=== PATIENT | male | born 1945 | race American Indian/Alaskan Native ===

== ENCOUNTER 2019-07-07 18:22 | Observation (INO) | payer MEDICARE ==
--- NOTE | 2019-07-07 21:58 | Emergency Department Report ---
HPI - General Chief Complaint: Weakness Time Seen by Provider: 07/07/19 21:36 - HPI HPI: Room 8 The pt is a 73 y/o M p/w a cc of AMS. Family states tonight the pt was on the sofa and appeared "out of it." She states the pt was too weak to get off of the sofa and wasnt behaving like himself, She states the pt is usually more alert. The pt has c/o "Not feeling good" lately as he has had a cough productive of yellow sputum and c/o dizziness. Denies fever, n/v. Pt admits to rhinnorhea. Pt currently denies complaints ED Past Medical Hx - Past Medical History Hx Hypertension: Yes Hx GERD: Yes Additional medical history: HIGH CHOLESTEROL - Surgical History Additional Surgical History: prostate surgery for cancer, Tonsilectomy, - Family History Family history: no significant - Social History Smoking Status: Current Every Day Smoker (1 ppd) Substance Use Type: None (denies illicit drug use), Alcohol (rarely) - Medications Home Medications: Home Medications Medication Instructions Recorded Confirmed Last Taken Type Metoprolol Succinate 25 mg PO DAILY 01/21/15 02/03/15 01/19/15 History Zofran TAB 4 mg PO Q4H PRN 02/03/15 02/03/15 Unknown History ED Review of Systems ROS: Stated complaint: WEAKNESS Other details as noted in HPI Constitutional: malaise Eyes: denies: eye pain ENT: denies: throat pain Respiratory: cough Cardiovascular: denies: chest pain Endocrine: no symptoms reported Gastrointestinal: denies: nausea, vomiting Genitourinary: denies: dysuria Musculoskeletal: denies: back pain Neurological: denies: headache Physical Exam - Physical Exam Vital Signs: Vital Signs 07/07/19 07/07/19 20:05 20:37 Temperature 99.6 F Pulse Rate 92 H Respiratory 16 16 Rate Blood Pressure 161/92 O2 Sat by Pulse 96 Oximetry Physical Exam: GEN: WD WN Lying on stretcher in NAD HEENT: NCAT, EOMI NECK: Trachea midline, no nuchal rigidity CV: rrr no m/r/g PULM: CTA Bilat ABD: S/NT/ND +BS NEURO: answers questions slowly GCS 15 SKIN: No diaphoresis MUSC: no evidence of acute injury ED Course Vital Signs 07/07/19 07/07/19 20:05 20:37 Temperature 99.6 F Pulse Rate 92 H Respiratory 16 16 Rate Blood Pressure 161/92 O2 Sat by Pulse 96 Oximetry ED Medical Decision Making - Lab Data Result diagrams: 07/07/19 22:10 07/07/19 22:10 Laboratory Tests 07/07/19 07/07/19 07/07/19 22:10 22:10 22:10 WBC 4.2 L RBC 4.34 Hgb 12.7 Hct 37.3 MCV 86 MCH 29 MCHC 34 RDW 15.1 Plt Count 194 Lymph % (Auto) 7.4 L [place] % (Auto) 10.4 H Eos % (Auto) 0.7 Baso % (Auto) 0.4 Lymph # 0.3 L [place] # 0.4 Eos # 0.0 Baso # 0.0 Seg Neutrophils % 81.1 H Seg Neutrophils # 3.4 Sodium 136 L Potassium 4.1 Chloride 101.5 Carbon Dioxide 20 L Anion Gap 19 BUN 18 Creatinine 1.4 Estimated GFR > 60 BUN/Creatinine Ratio 13 Glucose 95 Calcium 9.5 Magnesium 2.10 Total Bilirubin 0.50 AST 20 ALT 13 Alkaline Phosphatase 68 Total Creatine Kinase 130 CK-MB (CK-2) < 1.0 CK-MB (CK-2) Rel Index 0.7 Troponin T < 0.010 Total Protein 8.4 H Albumin 4.0 Albumin/Globulin Ratio 0.9 TSH 1.220 Free T4 0.87 Plasma/Serum Alcohol Influenza A (Rapid) Influenza B (Rapid) 07/07/19 07/07/19 22:10 Unknown WBC RBC Hgb Hct MCV MCH MCHC RDW Plt Count Lymph % (Auto) [place] % (Auto) Eos % (Auto) Baso % (Auto) Lymph # [place] # Eos # Baso # Seg Neutrophils % Seg Neutrophils # Sodium Potassium Chloride Carbon Dioxide Anion Gap BUN Creatinine Estimated GFR BUN/Creatinine Ratio Glucose Calcium Magnesium Total Bilirubin AST ALT Alkaline Phosphatase Total Creatine Kinase CK-MB (CK-2) CK-MB (CK-2) Rel Index Troponin T Total Protein Albumin Albumin/Globulin Ratio TSH Free T4 Plasma/Serum Alcohol < 0.01 Influenza A (Rapid) Negative Influenza B (Rapid) Negative - EKG Data -: EKG Interpreted by Ar EKG shows normal: sinus rhythm Rate: normal - EKG Data When compared to previous EKG there are: previous EKG unavailable Interpretation: other (no ischemic changes) - Radiology Data Radiology results: report reviewed (CT Head, CXR), image reviewed (CT Head, CXR) interpreted by me: CCXR- no focal infiltrate, no ptx [address] [address] Cat Scan Report Signed Patient: JOSE OCHOA MR#: [id number] 7 : 1945 Acct:[id number] Age/Sex: 73 / M ADM Date: 07/07/19 Loc: ED Attending Dr: Ordering Physician: DAVIN RODRIGUEZ MD Date of Service: 07/07/19 Procedure(s): CT head/brain wo con Accession Number(s): [id number] cc: DAVIN RODRIGUEZ MD CT head without contrast HISTORY: AMS. TECHNIQUE: Axial imaging performed from the skull apex through the skull base without the use of contrast. All CT scans at this location are performed using CT dose reduction for ALARA by means of automated exposure control. COMPARISON: None FINDINGS: Parenchyma: No acute intracranial hemorrhage or parenchymal abnormality. Ventricles: There is mild diffuse brain atrophy with commensurate ventricular enlargement which is likely age appropriate. Soft tissues: Soft tissues including the orbits appear normal. Bones: No acute osseous abnormality. Sinuses: Sinuses and mastoid air cells are clear. IMPRESSION: No acute abnormality. Signer Name: Lopez Baxter MD Signed: 07/07/2019 10:40 PM Workstation Name: [id number] Transcribed By: JW Dictated By: Lopez Baxter MD Electronically Authenticated By: Lopez Baxter MD Signed Date/Time: 07/07/192239 DD/ 38 TD/TT: [address] [address] XRay Report Signed Patient: JOSE OCHOA MR#: [id number] 7 : 1945 Acct:[id number] Age/Sex: 73 / M ADM Date: 07/07/19 Loc: ED Attending Dr: Ordering Physician: DAVIN RODRIGUEZ MD Date of Service: 07/07/19 Procedure(s): XR chest 1V ap Accession Number(s): [id number] cc: DAVIN RODRIGUEZ MD Fluoro Time In Minutes: CHEST 1 VIEW INDICATION: cough COMPARISON: 10/23/2014 FINDINGS: Support devices: None Heart: Normal Lungs/Pleura: Inspiration on today's exam is certainly less optimal than on the previous study, but I see no convincing evidence of acute disease. IMPRESSION: 1. No acute disease. Signer Name: Adrian Holley MD Signed: 07/07/2019 10:22 PM Workstation Name: [id number] Transcribed By: TM Dictated By: Adrian Holley MD Electronically Authenticated By: Adrian Holley MD Signed Date/Time: 07/07/192221 DD/ 20 TD/TT: - Differential Diagnosis dehydration, electrolyte imbalance, uti, hypothyroid Critical care attestation.: If time is entered above; I have spent that time in minutes in the direct care of this critically ill patient, excluding procedure time. ED Disposition Clinical Impression: Altered mental status Disposition: DC-09 OP ADMIT IP TO THIS HOSP Is pt being admited?: Yes Condition: Fair Referrals: PRIMARY CAREMD [Primary Care Provider] - 3-5 Days Time of Disposition: 23:06 (Hospitalist paged (Dr Zhang))
--- NOTE | 2019-07-07 22:27 | XRay Report ---
CHEST 1 VIEW INDICATION: cough COMPARISON: 10/23/2014 FINDINGS: Support devices: None Heart: Normal Lungs/Pleura: Inspiration on today's exam is certainly less optimal than on the previous study, but I see no convincing evidence of acute disease. IMPRESSION: 1. No acute disease. Signer Name: Adrian Holley MD Signed: 07/07/2019 10:22 PM Workstation Name: [id number]
--- NOTE | 2019-07-07 22:45 | Cat Scan Report ---
CT head without contrast HISTORY: AMS. TECHNIQUE: Axial imaging performed from the skull apex through the skull base without the use of con trast. All CT scans at this location are performed using CT dose reduction for ALARA by means of aut omated exposure control. COMPARISON: None FINDINGS: Parenchyma: No acute intracranial hemorrhage or parenchymal abnormality. Ventricles: There is mild diffuse brain atrophy with commensurate ventricular enlargement which is l ikely age appropriate. Soft tissues: Soft tissues including the orbits appear normal. Bones: No acute osseous abnormality. Sinuses: Sinuses and mastoid air cells are clear. IMPRESSION: No acute abnormality. Signer Name: Lopez Baxter MD Signed: 07/07/2019 10:40 PM Workstation Name: [id number]
[2019-07-07 22:48] LABS: Basophils % (Auto) 0.4 % (0.0-1.8); Eosinophils % (Auto) 0.7 % (0.0-4.3); Hematocrit 37.3 % (35.5-45.6); Hemoglobin 12.7 gm/dl (11.8-15.2); Lymphocytes # (Auto) 0.3 K/mm3 (1.2-5.4); Lymphocytes % (Auto) 7.4 % (13.4-35.0); Mean Corpuscular HGB Conc 34 % (32-34); Mean Corpuscular Volume 86 fl (84-94); Monocytes # (Auto) 0.4 K/mm3 (0.0-0.8); Monocytes % (Auto) 10.4 % (0.0-7.3); Platelet Count 194 K/mm3 (140-440); Red Blood Count 4.34 M/mm3 (3.65-5.03); Red Cell Distribution Width 15.1 % (13.2-15.2)
[2019-07-07 22:53] LABS: Free T4 (Free Thyroxine) 0.87 ng/dL (0.76-1.46)
[2019-07-07 22:55] LABS: Creatine Kinase MB < 1.0 ng/mL (0.0-4.0)
[2019-07-07 22:56] LABS: Alanine Aminotransferase 13 units/L (7-56); BUN/Creatinine Ratio 13; Blood Urea Nitrogen 18 mg/dL (9-20); Calcium 9.5 mg/dL (8.4-10.2); Hemolysis Index 13
[2019-07-07] MEDS ORDERED: LACTULOSE 20 GM/30 ML ORAL LIQD PO ONE (23:25)
[2019-07-08] MEDS ORDERED: ACETAMINOPHEN 325 MG TAB PO PRN (00:11)
[2019-07-08] MEDS ORDERED: ONDANSETRON 4 MG/2 ML INJ IV PRN (00:11)
[2019-07-08] MEDS ORDERED: MAGNESIUM HYDROXIDE (MOM) ORAL LIQD UDC PO PRN (00:11)
--- NOTE | 2019-07-08 00:54 | History and Physical Report ---
History of Present Illness Date of examination: 07/07/19 Date of admission: 07/07/19 23:26 Chief complaint: Altered Mental status History of present illness: 73-year-old male with known history of hypertension, hyperlipidemia brought into the emergency room today for generalized weakness and altered mental status. Patient was said to be sitting down his sofa today and was not behaving his usual self. Patient was said to have been having some cough productive of some yellow sputum recently, had no fever or chills, no nausea vomiting, no chest pain. Upon arrival in the emergency room patient indicates that he just felt very weak and could not get up from the chair. He denies any other complaints. Past History Past Medical History: hypertension, hyperlipidemia, other (Prostate cancer) Past Surgical History: Other (Prostate surgery) Social history: smoking (1 pack per day of cigarette), alcohol abuse (Drinks alcohol occasionally) Family history: no significant family history Medications and Allergies Allergies Allergy/AdvReac Type Severity Reaction Status Date / Time No Known Allergies Allergy Verified 10/23/14 11:02 Home Medications Medication Instructions Recorded Confirmed Last Taken Type Metoprolol Succinate 25 mg PO DAILY 01/21/15 07/08/19 01/19/15 History AtorvaSTATin 40 mg PO HS 07/08/19 07/08/19 Unknown History Active Meds: Active Medications Acetaminophen (Tylenol) 650 mg PO Q4H PRN PRN Reason: Pain MILD(1-3)/Fever >100.5/LUA Sodium Chloride (Nacl 0.9% 1000 Ml) 1,000 mls @ 75 mls/hr IV DIRECT ALYSSA Magnesium Hydroxide (Milk Of Magnesia) 30 ml PO Q4H PRN PRN Reason: Constipation Ondansetron HCl (Zofran) 4 mg IV Q8H PRN PRN Reason: Nausea And Vomiting Sodium Chloride (Sodium Chloride Flush Syringe 10 Ml) 10 ml IV BID ALYSSA Sodium Chloride (Sodium Chloride Flush Syringe 10 Ml) 10 ml IV PRN PRN PRN Reason: LINE FLUSH Review of Systems Constitutional: no weight loss, no fever, no chills Cardiovascular: no chest pain, no palpitations Respiratory: cough, no shortness of breath, no congestion Gastrointestinal: no nausea, no vomiting, no diarrhea Genitourinary Male: no dysuria, no hematuria Musculoskeletal: no neck pain, no low back pain Integumentary: no rash, no pruritis Neurological: weakness, no syncope, no headaches Exam - Constitutional Vitals: Temp Pulse Resp BP Pulse Ox 99.6 F 92 H 16 161/92 96 07/07/19 20:05 07/07/19 20:05 07/07/19 20:37 07/07/19 20:05 07/07/19 20:05 General appearance: Present: no acute distress, well-nourished - EENT Eyes: Present: PERRL, EOM intact ENT: hearing intact, clear oral mucosa, dentition normal - Neck Neck: Present: supple, normal ROM - Respiratory Respiratory effort: normal Respiratory: bilateral: CTA - Cardiovascular Rhythm: regular Heart Sounds: Present: S1 & S2 - Extremities Extremities: no ischemia, pulses intact, No edema, Full ROM Peripheral Pulses: within normal limits - Abdominal General gastrointestinal: Present: soft, non-tender, non-distended - Integumentary Integumentary: Present: clear, warm, dry - Musculoskeletal Musculoskeletal: strength equal bilaterally - Psychiatric Psychiatric: appropriate mood/affect, intact judgment & insight, cooperative - Neurologic Neurologic: CNII-XII intact, moves all extremities Results - Labs CBC & Chem 7: 07/07/19 22:10 07/07/19 22:10 Labs: Abnormal lab results 07/07/19 07/07/19 07/07/19 Range/Units 22:10 22:10 22:10 WBC 4.2 L (4.5-11.0) K/mm3 Lymph % (Auto) 7.4 L (13.4-35.0) % [place] % (Auto) 10.4 H (0.0-7.3) % Lymph # 0.3 L (1.2-5.4) K/mm3 Seg Neutrophils % 81.1 H (40.0-70.0) % Sodium 136 L (137-145) mmol/L Carbon Dioxide 20 L (22-30) mmol/L Ammonia 69.0 H (25-60) umol/L Total Protein 8.4 H (6.3-8.2) g/dL Assessment and Plan - Patient Problems (1) Altered mental status Current Visit: Yes Status: Acute Plan to address problem: Etiology is unclear. Patient admitted and will monitor mental status. This may be related to his elevated ammonia levels. (2) Hyperammonemia Current Visit: Yes Status: Acute Plan to address problem: Etiology is unclear. Patient has slightly elevated liver enzyme. We will give lactulose and monitor mental status. We will also monitor ammonia levels. We will place a consult to gastroenterology for further evaluation and recommendation. (3) DVT prophylaxis Current Visit: Yes Status: Acute Plan to address problem: Patient placed on subcutaneous heparin. (4) Full code status Current Visit: Yes Status: Acute
[2019-07-08] MEDS ORDERED: LACTULOSE 20 GM/30 ML ORAL LIQD ONE (00:57)
[2019-07-08 01:21] LABS: Bacteria,Urine 1+ /HPF (Negative); Bilirubin,Urine NEG (Negative); Blood,Urine MOD (Negative); Color,Urine Yellow (Yellow); Mucus,Urine FEW /HPF; Urobilinogen,Urine < 2.0 mg/dL (<2.0)
[2019-07-08] MEDS: SODIUM CHLORIDE 0.9% 1000 ML 1,000 ML IV SCH ×2 (06:15→21:13)
[2019-07-08] MEDS: LACTULOSE 20 GM/30 ML ORAL LIQD PO SCH ×3 (06:15→19:20)
[2019-07-08] MEDS: HEPARIN 5,000 UNIT/1 ML VIAL SUB-Q SCH ×4 (06:21→21:12)
[2019-07-08] MEDS: METOPROLOL SUCCINATE XL 25 MG TAB PO SCH (09:26)
--- NOTE | 2019-07-08 11:55 | Progress Note ---
Assessment and Plan Assessment and plan: Patient reports he had an episode of weakness. His family were concerned that he was less responsive. Altered mental status Patient denies altered mental status, stroke work-up in progress Pseudo-hyperammonemia It was likely a lab error, question if the sample was put on ice. Repeat ammonia is normal. Liver function tests are normal. Low-grade fever; flu negative, UA and chest x-ray negative. History Interval history: Review of systems Constitutional: No fevers, no malaise, no joint pains CVS: No chest pain, no orthopnea, no pedal edema GI: No abdominal pain, no diarrhea, no vomiting, no constipation Respiratory: , no wheezing, no coughing Hospitalist Physical - Physical exam Narrative exam: General.: Appears well, no distress, nontoxic HEENT: Moist mucous membranes, extraocular muscles intact, no lymphadenopathy Neck: supple Cardiac: S1-S2 heard Lungs: clear to auscultation bilaterally Abdomen: soft , nontender, nondistended, bowel sounds positive Extremities: no edema clubbing or cyanosis Skin: no rash or lesions Neurologic: no gross focal deficits Psych: calm, and cooperative - Constitutional Vitals: Temp Pulse Resp BP Pulse Ox 100.7 F H 78 18 128/68 95 07/08/19 08:05 07/08/19 09:26 07/08/19 08:05 07/08/19 09:26 07/08/19 08:05 General appearance: Present: no acute distress, well-nourished Results - Labs CBC & Chem 7: 07/09/19 04:53 07/09/19 04:53 Labs: Laboratory Last Values WBC 4.2 K/mm3 (4.5-11.0) L 07/07/19 22:10 RBC 4.34 M/mm3 (3.65-5.03) 07/07/19 22:10 Hgb 12.7 gm/dl (11.8-15.2) 07/07/19 22:10 Hct 37.3 % (35.5-45.6) 07/07/19 22:10 MCV 86 fl (84-94) 07/07/19 22:10 MCH 29 pg (28-32) 07/07/19 22:10 MCHC 34 % (32-34) 07/07/19 22:10 RDW 15.1 % (13.2-15.2) 07/07/19 22:10 Plt Count 194 K/mm3 (140-440) 07/07/19 22:10 Lymph % (Auto) 7.4 % (13.4-35.0) L 07/07/19 22:10 [place] % (Auto) 10.4 % (0.0-7.3) H 07/07/19 22:10 Eos % (Auto) 0.7 % (0.0-4.3) 07/07/19 22:10 Baso % (Auto) 0.4 % (0.0-1.8) 07/07/19 22:10 Lymph # 0.3 K/mm3 (1.2-5.4) L 07/07/19 22:10 [place] # 0.4 K/mm3 (0.0-0.8) 07/07/19 22:10 Eos # 0.0 K/mm3 (0.0-0.4) 07/07/19 22:10 Baso # 0.0 K/mm3 (0.0-0.1) 07/07/19 22:10 Seg Neutrophils % 81.1 % (40.0-70.0) H 07/07/19 22:10 Seg Neutrophils # 3.4 K/mm3 (1.8-7.7) 07/07/19 22:10 Sodium 136 mmol/L (137-145) L 07/07/19 22:10 Potassium 4.1 mmol/L (3.6-5.0) 07/07/19 22:10 Chloride 101.5 mmol/L (98-107) 07/07/19 22:10 Carbon Dioxide 20 mmol/L (22-30) L 07/07/19 22:10 Anion Gap 19 mmol/L 07/07/19 22:10 BUN 18 mg/dL (9-20) 07/07/19 22:10 Creatinine 1.4 mg/dL (0.8-1.5) 07/07/19 22:10 Estimated GFR > 60 ml/min 07/07/19 22:10 BUN/Creatinine Ratio 13 % 07/07/19 22:10 Glucose 95 mg/dL (75-100) 07/07/19 22:10 Calcium 9.5 mg/dL (8.4-10.2) 07/07/19 22:10 Magnesium 2.10 mg/dL (1.7-2.3) 07/07/19 22:10 Total Bilirubin 0.50 mg/dL (0.1-1.2) 07/07/19 22:10 AST 20 units/L (5-40) 07/07/19 22:10 ALT 13 units/L (7-56) 07/07/19 22:10 Alkaline Phosphatase 68 units/L (35-129) 07/07/19 22:10 Ammonia 54.0 umol/L (25-60) 07/08/19 06:10 Total Creatine Kinase 130 units/L (55-170) 07/07/19 22:10 CK-MB (CK-2) < 1.0 ng/mL (0.0-4.0) 07/07/19 22:10 CK-MB (CK-2) Rel Index 0.7 (0-4) 07/07/19 22:10 Troponin T < 0.010 ng/mL (0.00-0.029) 07/07/19 22:10 Total Protein 8.4 g/dL (6.3-8.2) H 07/07/19 22:10 Albumin 4.0 g/dL (3.9-5) 07/07/19 22:10 Albumin/Globulin Ratio 0.9 % 07/07/19 22:10 TSH 1.220 mlU/mL (0.270-4.200) 07/07/19 22:10 Free T4 0.87 ng/dL (0.76-1.46) 07/07/19 22:10 Urine Color Yellow (Yellow) 07/08/19 00:20 Urine Turbidity Cloudy (Clear) 07/08/19 00:20 Urine pH 5.0 (5.0-7.0) 07/08/19 00:20 Ur Specific [place] 1.019 (1.003-1.030) 07/08/19 00:20 Urine Protein 30 mg/dl mg/dL (Negative) 07/08/19 00:20 Urine Glucose (UA) Neg mg/dL (Negative) 07/08/19 00:20 Urine Ketones Neg mg/dL (Negative) 07/08/19 00:20 Urine Blood Mod (Negative) 07/08/19 00:20 Urine Nitrite Neg (Negative) 07/08/19 00:20 Urine Bilirubin Neg (Negative) 07/08/19 00:20 Urine Urobilinogen < 2.0 mg/dL (<2.0) 07/08/19 00:20 Ur Leukocyte Esterase Neg (Negative) 07/08/19 00:20 Urine WBC (Auto) 2.0 /HPF (0.0-6.0) 07/08/19 00:20 Urine RBC (Auto) 2.0 /HPF (0.0-6.0) 07/08/19 00:20 U Epithel Cells (Auto) < 1.0 /HPF (0-13.0) 07/08/19 00:20 Urine Bacteria (Auto) 1+ /HPF (Negative) 07/08/19 00:20 Uric Acid Crystals 1+ 07/08/19 00:20 Urine Mucus Few /HPF 07/08/19 00:20 Plasma/Serum Alcohol < 0.01 % (0-0.07) 07/07/19 22:10 Influenza A (Rapid) Negative (Negative) 07/07/19 Unknown Influenza B (Rapid) Negative (Negative) 07/07/19 Unknown Active Medications - Current Medications Current Medications: Generic Name Dose Route Start Last Admin Trade Name Freq PRN Reason Stop Dose Admin Acetaminophen 650 mg 07/08/19 00:11 Tylenol PO Q4H PRN Pain MILD(1-3)/Fever >100.5/LUA Atorvastatin Calcium 40 mg 07/08/19 22:00 Lipitor PO QHS ALYSSA Heparin Sodium (Porcine) 5,000 unit 07/08/19 06:00 07/08/19 06:21 Heparin SUB-Q 5,000 unit Q8HR ALYSSA Administration Sodium Chloride 1,000 mls @ 75 mls/hr 07/08/19 00:15 07/08/19 06:15 Nacl 0.9% 1000 Ml IV 75 mls/hr DIRECT ALYSSA Administration Lactulose 20 gm 07/08/19 06:00 07/08/19 11:23 Cephulac PO 20 gm Q6HR ALYSSA Administration Magnesium Hydroxide 30 ml 07/08/19 00:11 Milk Of Magnesia PO Q4H PRN Constipation Metoprolol Succinate 25 mg 07/08/19 10:00 07/08/19 09:26 Metoprolol Xl PO 25 mg DAILY ALYSSA Administration Ondansetron HCl 4 mg 07/08/19 00:11 Zofran IV Q8H PRN Nausea And Vomiting Sodium Chloride 10 ml 07/08/19 10:00 07/08/19 09:26 Sodium Chloride Flush Syringe 10 Ml IV 10 ml BID ALYSSA Administration Sodium Chloride 10 ml 07/08/19 00:11 Sodium Chloride Flush Syringe 10 Ml IV PRN PRN LINE FLUSH
--- NOTE | 2019-07-08 13:42 | Gastroenterology Consultation ---
History of Present Illness - Reason for Consult Consult date: 07/08/19 hyperammonemia Requesting physician: LADY MORTENSEN - History of Present Illness Patient is a 73 y/o male with PMH of HTN, HLD, and prostate CA who was bought to ED for evaluation of generalized weakness and AMS. Upon admission, ammonia level was found to be elevated at 69 to which GI has been consulted. Head CT w/o acute process. This morning patient was sitting up in bed with family at bedside. Noted to alert and oriented. Currently w/o GI complaints such as abd pain, N/V, jaundice, wt loss, signs of bleeding, or LGI symptoms. Admits to heavy alcohol use on the weekends but has no hx or Fhx of liver disease. No new medications. Tolerating diet. Past History Past Medical History: hypertension, hyperlipidemia, other (Prostate cancer) Past Surgical History: Other (Prostate surgery) Social history: smoking (1 pack per day of cigarette), alcohol abuse (Drinks alcohol occasionally) Family history: no significant family history Medications and Allergies Allergies Allergy/AdvReac Type Severity Reaction Status Date / Time No Known Allergies Allergy Verified 10/23/14 11:02 Home Medications Medication Instructions Recorded Confirmed Last Taken Type Metoprolol Succinate 25 mg PO DAILY 01/21/15 07/08/19 01/19/15 History AtorvaSTATin 40 mg PO HS 07/08/19 07/08/19 Unknown History Active Meds: Active Medications Acetaminophen (Tylenol) 650 mg PO Q4H PRN PRN Reason: Pain MILD(1-3)/Fever >100.5/LUA Last Admin: 07/08/19 10:00 Dose: 650 mg Documented by: Atorvastatin Calcium (Lipitor) 40 mg PO QHS ALYSSA Heparin Sodium (Porcine) (Heparin) 5,000 unit SUB-Q Q8HR ALYSSA Last Admin: 07/08/19 13:38 Dose: 5,000 unit Documented by: Sodium Chloride (Nacl 0.9% 1000 Ml) 1,000 mls @ 75 mls/hr IV DIRECT ALYSSA Last Admin: 07/08/19 06:15 Dose: 75 mls/hr Documented by: Lactulose (Cephulac) 20 gm PO Q6HR ALYSSA Last Admin: 07/08/19 11:23 Dose: 20 gm Documented by: Magnesium Hydroxide (Milk Of Magnesia) 30 ml PO Q4H PRN PRN Reason: Constipation Metoprolol Succinate (Metoprolol Xl) 25 mg PO DAILY [facility] Last Admin: 07/08/19 09:26 Dose: 25 mg Documented by: Ondansetron HCl (Zofran) 4 mg IV Q8H PRN PRN Reason: Nausea And Vomiting Sodium Chloride (Sodium Chloride Flush Syringe 10 Ml) 10 ml IV BID [facility] Last Admin: 07/08/19 09:26 Dose: 10 ml Documented by: Sodium Chloride (Sodium Chloride Flush Syringe 10 Ml) 10 ml IV PRN PRN PRN Reason: LINE FLUSH medications reviewed/updated as required Review of Systems - Review of Systems All systems: negative Constitutional: weakness Gastrointestinal: no abdominal pain, no nausea, no vomiting Neurological: other (confusion) Exam - Constitutional Vital Signs: Temp Pulse Resp BP Pulse Ox 100.7 F H 78 18 128/68 95 07/08/19 08:05 07/08/19 09:26 07/08/19 08:05 07/08/19 09:26 07/08/19 08:05 General appearance: no acute distress - EENT Eyes: PERRL, EOM intact ENT: hearing intact - Respiratory Respiratory effort: normal - Cardiovascular Rhythm: regular - Gastrointestinal General gastrointestinal: Present: soft, non-tender, non-distended, normal bowel sounds - Integumentary Integumentary: Present: warm, dry - Neurologic Neurological: alert and oriented x3 - Labs CBC & Chem 7: 07/07/19 22:10 07/07/19 22:10 Lab Results: Laboratory Results - last 24 hr 07/07/19 07/07/19 07/07/19 22:10 22:10 22:10 WBC 4.2 L RBC 4.34 Hgb 12.7 Hct 37.3 MCV 86 MCH 29 MCHC 34 RDW 15.1 Plt Count 194 Lymph % (Auto) 7.4 L [place] % (Auto) 10.4 H Eos % (Auto) 0.7 Baso % (Auto) 0.4 Lymph # 0.3 L [place] # 0.4 Eos # 0.0 Baso # 0.0 Seg Neutrophils % 81.1 H Seg Neutrophils # 3.4 Sodium 136 L Potassium 4.1 Chloride 101.5 Carbon Dioxide 20 L Anion Gap 19 BUN 18 Creatinine 1.4 Estimated GFR > 60 BUN/Creatinine Ratio 13 Glucose 95 Calcium 9.5 Magnesium 2.10 Total Bilirubin 0.50 AST 20 ALT 13 Alkaline Phosphatase 68 Ammonia Total Creatine Kinase 130 CK-MB (CK-2) < 1.0 CK-MB (CK-2) Rel Index 0.7 Troponin T < 0.010 Total Protein 8.4 H Albumin 4.0 Albumin/Globulin Ratio 0.9 TSH 1.220 Free T4 0.87 Urine Color Urine Turbidity Urine pH Ur Specific [place] Urine Protein Urine Glucose (UA) Urine Ketones Urine Blood Urine Nitrite Urine Bilirubin Urine Urobilinogen Ur Leukocyte Esterase Urine WBC (Auto) Urine RBC (Auto) U Epithel Cells (Auto) Urine Bacteria (Auto) Uric Acid Crystals Urine Mucus Plasma/Serum Alcohol Influenza A (Rapid) Influenza B (Rapid) 07/07/19 07/07/19 07/07/19 22:10 22:10 Unknown WBC RBC Hgb Hct MCV MCH MCHC RDW Plt Count Lymph % (Auto) [place] % (Auto) Eos % (Auto) Baso % (Auto) Lymph # [place] # Eos # Baso # Seg Neutrophils % Seg Neutrophils # Sodium Potassium Chloride Carbon Dioxide Anion Gap BUN Creatinine Estimated GFR BUN/Creatinine Ratio Glucose Calcium Magnesium Total Bilirubin AST ALT Alkaline Phosphatase Ammonia 69.0 H Total Creatine Kinase CK-MB (CK-2) CK-MB (CK-2) Rel Index Troponin T Total Protein Albumin Albumin/Globulin Ratio TSH Free T4 Urine Color Urine Turbidity Urine pH Ur Specific [place] Urine Protein Urine Glucose (UA) Urine Ketones Urine Blood Urine Nitrite Urine Bilirubin Urine Urobilinogen Ur Leukocyte Esterase Urine WBC (Auto) Urine RBC (Auto) U Epithel Cells (Auto) Urine Bacteria (Auto) Uric Acid Crystals Urine Mucus Plasma/Serum Alcohol < 0.01 Influenza A (Rapid) Negative Influenza B (Rapid) Negative 07/08/19 07/08/19 00:20 06:10 WBC RBC Hgb Hct MCV MCH MCHC RDW Plt Count Lymph % (Auto) [place] % (Auto) Eos % (Auto) Baso % (Auto) Lymph # [place] # Eos # Baso # Seg Neutrophils % Seg Neutrophils # Sodium Potassium Chloride Carbon Dioxide Anion Gap BUN Creatinine Estimated GFR BUN/Creatinine Ratio Glucose Calcium Magnesium Total Bilirubin AST ALT Alkaline Phosphatase Ammonia 54.0 Total Creatine Kinase CK-MB (CK-2) CK-MB (CK-2) Rel Index Troponin T Total Protein Albumin Albumin/Globulin Ratio TSH Free T4 Urine Color Yellow Urine Turbidity Cloudy Urine pH 5.0 Ur Specific [place] 1.019 Urine Protein 30 mg/dl Urine Glucose (UA) Neg Urine Ketones Neg Urine Blood Mod Urine Nitrite Neg Urine Bilirubin Neg Urine Urobilinogen < 2.0 Ur Leukocyte Esterase Neg Urine WBC (Auto) 2.0 Urine RBC (Auto) 2.0 U Epithel Cells (Auto) < 1.0 Urine Bacteria (Auto) 1+ Uric Acid Crystals 1+ Urine Mucus Few Plasma/Serum Alcohol Influenza A (Rapid) Influenza B (Rapid) Assessment and Plan 1.hyperammonemia -ammonia 69 on admission, now WNL (54) -H/H, plt, and LFTs WNL -etiology unclear- no evidence of liver disease per labs -clinically, patient's mental status has improved (further workup of AMS per primary team). Denies abd pain, N/V, jaundice, or signs of bleeding. Tolerating diet. -recommend abd U/S for further evaluation of liver -continue lactulose -continue to trend labs and supportive care -alcohol cessation -further recommendations to follow
[2019-07-08 14:24] LABS: INR 1.09 (0.87-1.13)
--- NOTE | 2019-07-08 18:34 | Cat Scan Report ---
CT ABDOMEN AND PELVIS WITH CONTRAST INDICATION: elevated NH3. TECHNIQUE: Axial CT images were obtained through the abdomen and pelvis after 100 cc Omnipaque [address] scans at this location are performed using CT dose reduction for ALARA by means of automated exposure control. COMPARISON: None available. FINDINGS: Exam is moderately limited by story motion artifact LOWER CHEST: Airspace consolidation both lower lobes characteristic for bronchopneumonia LIVER: No significant abnormality. GALLBLADDER: No significant abnormality. BILE DUCTS: No significant abnormality. PANCREAS: No significant abnormality. SPLEEN: No significant abnormality. ADRENALS: No significant abnormality. RIGHT KIDNEY and URETER: No significant abnormality. LEFT KIDNEY and URETER: No significant abnormality. STOMACH and SMALL BOWEL: No significant abnormality. COLON: No significant abnormality. APPENDIX: No significant abnormality. PERITONEUM: No free fluid. No free air. No fluid collection. LYMPH NODES: No significant adenopathy. AORTA and ARTERIES: No significant abnormality. IVC and VEINS: No significant abnormality. URINARY BLADDER: No significant abnormality. REPRODUCTIVE ORGANS: Prostate surgically absent. ADDITIONAL FINDINGS: None. 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 Bilateral lower lobe bronchopneumonia. 2. Prostatectomy without CT evidence for intra-abdominal, pelvic or skeletal metastases Signer Name: Jose Pérez MD Signed: 07/08/2019 6:29 PM Workstation Name: [id number]
[2019-07-08 19:43] LABS: Hepatitis B Surface Antigen Non-Reactive (Negative); Hepatitis C Virus Antibody Non-Reactive (NonReactive)
--- NOTE | 2019-07-08 21:30 | Magnetic Resonance Report ---
MRI BRAIN WITHOUT CONTRAST INDICATION / CLINICAL INFORMATION: MAIN: stroke, weakness. TECHNIQUE: Multiplanar, multisequence MR images of the brain were obtained. COMPARISON: Head CT dated July 07, 2019 FINDINGS: BRAIN / INTRACRANIAL CONTENTS: Age-related parenchymal volume loss is demonstrated. Dilatation of the cortical sulci and ventricular system is noted in keeping with the patient's stated age of 73. Incid ental note is made of persistence of the cavum septum pellucidum and cavum therapy. Periventricular a nd deep white matter hyperintensities noted consistent with age-related microvascular ischemic change s. There is no mass effect. No evidence of intracranial hemorrhage or extra-axial fluid collection is seen. There is no indication of remote cortical infarction. Diffusion weighted scans are negative. T here is no indication of acute ischemic injury. The brainstem and cerebellum have an unremarkable appearance. CRANIOCERVICAL JUNCTION: No abnormalities are identified at the craniocervical junction. VASCULAR FLOW-VOIDS: Normal flow-voids are present within the major intracranial vessels. ORBITS: The orbits have an unremarkable appearance. SINUSES / MASTOIDS: There is no indication of inflammatory disease in the paranasal sinuses or mastoi d air cells. ADDITIONAL FINDINGS: None. IMPRESSION: 1. Age-appropriate involutional changes of parenchymal volume loss and microvascular ischemia. 2. No acute intracranial abnormality. MRA HEAD WITHOUT CONTRAST HISTORY: Cerebrovascular accident. COMPARISON: none TECHNIQUE: Routine MRA of the head performed. 3-D/MIP reformats postprocessed. CONTRAST: none FINDINGS: MRA HEAD: OVERVIEW: There is no evidence of intracranial stenosis or large vessel occlusion. There is no eviden ce of aneurysm or other vascular malformation. Intracranial vertebral arteries: Left vertebral artery is dominant. Both vertebral arteries contribut e to the basilar artery origin.. Basilar artery: Basilar artery has an unremarkable appearance. Posterior cerebral arteries: Artifacts on 3-D reconstructions limited evaluation of the posterior cer ebral arteries. Evaluation of source images reveals symmetrical visualization of unremarkable appeari ng posterior cerebral arteries bilaterally. Intracranial internal carotid arteries: No abnormalities are seen along the course of the internal ca rotid arteries. Anterior cerebral arteries: Asymmetry of the A1 segments of the anterior cerebral arteries is noted r ight larger than left. A 2 segments of the anterior cerebral arteries have an unremarkable appearance . Middle cerebral arteries: Bilaterally symmetrical M1 segments of the middle cerebral arteries is obse rved. Insular and opercular branches have a normal and symmetrical appearance bilaterally. Additional findings: None. IMPRESSION: 1. No indication of large vessel occlusion or intracranial stenosis. Signer Name: Lam Red MD Signed: 07/08/2019 9:25 PM Workstation Name: [id number]
[2019-07-08] MEDS ORDERED: NON-FORMULARY EACH (Atorvastatin 40 MG) PO SCH (22:00)
[2019-07-09] MEDS: LACTULOSE 20 GM/30 ML ORAL LIQD PO SCH ×2 (00:40→05:54)
[2019-07-09] MEDS: HEPARIN 5,000 UNIT/1 ML VIAL SUB-Q SCH (05:56)
[2019-07-09 06:29] LABS: Basophils % (Auto) 0.6 % (0.0-1.8); Eosinophils # (Auto) 0.1 K/mm3 (0.0-0.4); Eosinophils % (Auto) 2.5 % (0.0-4.3); Hematocrit 35.1 % (35.5-45.6); Hemoglobin 11.5 gm/dl (11.8-15.2); Lymphocytes # (Auto) 0.5 K/mm3 (1.2-5.4); Lymphocytes % (Auto) 12.1 % (13.4-35.0); Mean Corpuscular HGB Conc 33 % (32-34); Mean Corpuscular Volume 85 fl (84-94); Monocytes # (Auto) 0.4 K/mm3 (0.0-0.8); Monocytes % (Auto) 9.7 % (0.0-7.3); Platelet Count 197 K/mm3 (140-440); Red Blood Count 4.12 M/mm3 (3.65-5.03); Red Cell Distribution Width 15.3 % (13.2-15.2)
[2019-07-09 06:32] LABS: INR 1.07 (0.87-1.13)
[2019-07-09 06:52] LABS: BUN/Creatinine Ratio 17; Blood Urea Nitrogen 20 mg/dL (9-20); Calcium 8.6 mg/dL (8.4-10.2); Chol/HDL Ratio 3.37 %; HDL Cholesterol 40 mg/dL (40-59); Hemolysis Index 14; LDL Cholesterol,Direct 84 mg/dL (50-130)
--- NOTE | 2019-07-09 09:46 | Ultrasound Report ---
.ULTRASOUND ABDOMEN, COMPLETE INDICATION: hyperammonemia. COMPARISON: CT abdomen pelvis with contrast dated 07/08/2019. FINDINGS: Pancreas: No significant abnormality. Abdominal Aorta: No significant abnormality. IVC: No significant abnormality. Liver: The liver measures 15.3 cm in length. No significant abnormality. Normal hepatopedal blood fl ow in the main portal vein. Gallbladder: No significant abnormality. Bile ducts: No significant abnormality. The common bile duct was not clearly visualized in the lou hepatis but does not appear to be dilated. Kidneys: Right: 8.5 cm in length. Slightly atrophic. No focal lesion. Left: 7.8 cm in length. Sli ghtly atrophic. No focal lesion. Spleen: No significant abnormality. Free fluid: None. Additional Findings: None. IMPRESSION: Unremarkable sonographic appearance of the liver and biliary system. Please note the common bile farrah t was not clearly demonstrated. Mild bilateral renal atrophy. Signer Name: Wagner Mcclellan Jr, MD Signed: 07/09/2019 9:42 AM Workstation Name: [id number]
--- NOTE | 2019-07-09 10:04 | Progress Note ---
Hospitalist Physical - Constitutional Vitals: Temp Pulse Resp BP Pulse Ox 99.1 F 59 L 18 126/63 94 07/09/19 04:16 07/09/19 04:16 07/09/19 04:16 07/09/19 04:16 07/09/19 04:16 General appearance: Present: no acute distress, well-nourished Results - Labs CBC & Chem 7: 07/09/19 04:53 07/09/19 04:53 Labs: Laboratory Last Values WBC 4.3 K/mm3 (4.5-11.0) L 07/09/19 04:53 RBC 4.12 M/mm3 (3.65-5.03) 07/09/19 04:53 Hgb 11.5 gm/dl (11.8-15.2) L 07/09/19 04:53 Hct 35.1 % (35.5-45.6) L 07/09/19 04:53 MCV 85 fl (84-94) 07/09/19 04:53 MCH 28 pg (28-32) 07/09/19 04:53 MCHC 33 % (32-34) 07/09/19 04:53 RDW 15.3 % (13.2-15.2) H 07/09/19 04:53 Plt Count 197 K/mm3 (140-440) 07/09/19 04:53 Lymph % (Auto) 12.1 % (13.4-35.0) L 07/09/19 04:53 [place] % (Auto) 9.7 % (0.0-7.3) H 07/09/19 04:53 Eos % (Auto) 2.5 % (0.0-4.3) 07/09/19 04:53 Baso % (Auto) 0.6 % (0.0-1.8) 07/09/19 04:53 Lymph # 0.5 K/mm3 (1.2-5.4) L 07/09/19 04:53 [place] # 0.4 K/mm3 (0.0-0.8) 07/09/19 04:53 Eos # 0.1 K/mm3 (0.0-0.4) 07/09/19 04:53 Baso # 0.0 K/mm3 (0.0-0.1) 07/09/19 04:53 Seg Neutrophils % 75.1 % (40.0-70.0) H 07/09/19 04:53 Seg Neutrophils # 3.3 K/mm3 (1.8-7.7) 07/09/19 04:53 PT 14.0 Sec. (12.2-14.9) 07/09/19 04:53 INR 1.07 (0.87-1.13) 07/09/19 04:53 APTT 34.0 Sec. (24.2-36.6) 07/09/19 04:53 Sodium 141 mmol/L (137-145) 07/09/19 04:53 Potassium 3.7 mmol/L (3.6-5.0) 07/09/19 04:53 Chloride 107.8 mmol/L (98-107) H 07/09/19 04:53 Carbon Dioxide 18 mmol/L (22-30) L 07/09/19 04:53 Anion Gap 19 mmol/L 07/09/19 04:53 BUN 20 mg/dL (9-20) 07/09/19 04:53 Creatinine 1.2 mg/dL (0.8-1.5) 07/09/19 04:53 Estimated GFR > 60 ml/min 07/09/19 04:53 BUN/Creatinine Ratio 17 % 07/09/19 04:53 Glucose 96 mg/dL (75-100) 07/09/19 04:53 Hemoglobin A1c 5.6 % (4-6) 07/09/19 04:53 Calcium 8.6 mg/dL (8.4-10.2) 07/09/19 04:53 Magnesium 2.10 mg/dL (1.7-2.3) 07/07/19 22:10 Total Bilirubin 0.50 mg/dL (0.1-1.2) 07/07/19 22:10 AST 20 units/L (5-40) 07/07/19 22:10 ALT 13 units/L (7-56) 07/07/19 22:10 Alkaline Phosphatase 68 units/L (35-129) 07/07/19 22:10 Ammonia 54.0 umol/L (25-60) 07/08/19 06:10 Total Creatine Kinase 130 units/L (55-170) 07/07/19 22:10 CK-MB (CK-2) < 1.0 ng/mL (0.0-4.0) 07/07/19 22:10 CK-MB (CK-2) Rel Index 0.7 (0-4) 07/07/19 22:10 Troponin T < 0.010 ng/mL (0.00-0.029) 07/07/19 22:10 Total Protein 8.4 g/dL (6.3-8.2) H 07/07/19 22:10 Albumin 4.0 g/dL (3.9-5) 07/07/19 22:10 Albumin/Globulin Ratio 0.9 % 07/07/19 22:10 Triglycerides 76 mg/dL (2-149) 07/09/19 04:53 Cholesterol 135 mg/dL (50-199) 07/09/19 04:53 LDL Cholesterol Direct 84 mg/dL (50-130) 07/09/19 04:53 HDL Cholesterol 40 mg/dL (40-59) 07/09/19 04:53 Cholesterol/HDL Ratio 3.37 % 07/09/19 04:53 TSH 1.220 mlU/mL (0.270-4.200) 07/07/19 22:10 Free T4 0.87 ng/dL (0.76-1.46) 07/07/19 22:10 Urine Color Yellow (Yellow) 07/08/19 00:20 Urine Turbidity Cloudy (Clear) 07/08/19 00:20 Urine pH 5.0 (5.0-7.0) 07/08/19 00:20 Ur Specific [place] 1.019 (1.003-1.030) 07/08/19 00:20 Urine Protein 30 mg/dl mg/dL (Negative) 07/08/19 00:20 Urine Glucose (UA) Neg mg/dL (Negative) 07/08/19 00:20 Urine Ketones Neg mg/dL (Negative) 07/08/19 00:20 Urine Blood Mod (Negative) 07/08/19 00:20 Urine Nitrite Neg (Negative) 07/08/19 00:20 Urine Bilirubin Neg (Negative) 07/08/19 00:20 Urine Urobilinogen < 2.0 mg/dL (<2.0) 07/08/19 00:20 Ur Leukocyte Esterase Neg (Negative) 07/08/19 00:20 Urine WBC (Auto) 2.0 /HPF (0.0-6.0) 07/08/19 00:20 Urine RBC (Auto) 2.0 /HPF (0.0-6.0) 07/08/19 00:20 U Epithel Cells (Auto) < 1.0 /HPF (0-13.0) 07/08/19 00:20 Urine Bacteria (Auto) 1+ /HPF (Negative) 07/08/19 00:20 Uric Acid Crystals 1+ 07/08/19 00:20 Urine Mucus Few /HPF 07/08/19 00:20 Plasma/Serum Alcohol < 0.01 % (0-0.07) 07/07/19 22:10 Hepatitis A IgM Ab Non-reactive (NonReactive) 07/08/19 13:49 Hep Bs Antigen Non-reactive (Negative) 07/08/19 13:49 Hep B Core IgM Ab Non-reactive (NonReactive) 07/08/19 13:49 Hepatitis C Antibody Non-reactive (NonReactive) 07/08/19 13:49 Influenza A (Rapid) Negative (Negative) 07/07/19 Unknown Influenza B (Rapid) Negative (Negative) 07/07/19 Unknown Active Medications - Current Medications Current Medications: Generic Name Dose Route Start Last Admin Trade Name Freq PRN Reason Stop Dose Admin Acetaminophen 650 mg 07/08/19 00:11 07/08/19 10:00 Tylenol PO 650 mg Q4H PRN Administration Pain MILD(1-3)/Fever >100.5/LUA Atorvastatin Calcium 40 mg 07/08/19 22:00 07/08/19 21:12 Lipitor PO 40 mg QHS ALYSSA Administration Heparin Sodium (Porcine) 5,000 unit 07/08/19 06:00 07/09/19 05:56 Heparin SUB-Q Not Given Q8HR ALYSSA Sodium Chloride 1,000 mls @ 75 mls/hr 07/08/19 00:15 07/08/19 21:13 Nacl 0.9% 1000 Ml IV 75 mls/hr DIRECT ALYSSA Administration Lactulose 20 gm 07/08/19 06:00 07/09/19 05:54 Cephulac PO 20 gm Q6HR ALYSSA Administration Magnesium Hydroxide 30 ml 07/08/19 00:11 Milk Of Magnesia PO Q4H PRN Constipation Metoprolol Succinate 25 mg 07/08/19 10:00 07/08/19 09:26 Metoprolol Xl PO 25 mg DAILY ALYSSA Administration Ondansetron HCl 4 mg 07/08/19 00:11 Zofran IV Q8H PRN Nausea And Vomiting Sodium Chloride 10 ml 07/08/19 10:00 07/08/19 21:12 Sodium Chloride Flush Syringe 10 Ml IV 10 ml BID ALYSSA Administration Sodium Chloride 10 ml 07/08/19 00:11 Sodium Chloride Flush Syringe 10 Ml IV PRN PRN LINE FLUSH
[2019-07-09] MEDS: METOPROLOL SUCCINATE XL 25 MG TAB PO SCH (10:46)
--- NOTE | 2019-07-09 12:24 | Gastroenterology Progress Note ---
Assessment and Plan 1.hyperammonemia -ammonia 69 on admission, now WNL (54) -plt and INR WNL -LFTs WNL -liver normal on abd CT and U/S -etiology unclear- no evidence of liver disease -clinically, patient is w/o GI complaints with encephalopathy improved and t olerating diet. -continue lactulose -continue to trend labs and supportive care -alcohol cessation -no further workup/recommendations per GI standpoint at this time -will sign off, please call if needed Subjective Date of service: 07/09/19 Principal diagnosis: hyperammonemia Interval history: Patient sitting on the side of the bed this am. Noted to be A & O with no GI complaints. Objective - Constitutional Vitals: Temp Pulse Resp BP Pulse Ox 99.1 F 59 L 18 126/63 94 07/09/19 04:16 07/09/19 04:16 07/09/19 04:16 07/09/19 04:16 07/09/19 04:16 General appearance: no acute distress - EENT Eyes: PERRL, EOM intact ENT: hearing intact - Respiratory Respiratory effort: normal - Cardiovascular Rhythm: regular - Gastrointestinal General gastrointestinal: Present: soft, non-tender, non-distended, normal bowel sounds - Neurologic Neurological: alert and oriented x3 - Labs CBC & Chem 7: 07/09/19 04:53 07/09/19 04:53 Labs: Laboratory Results - last 24 hr 07/08/19 07/08/19 07/09/19 13:49 13:49 04:53 WBC 4.3 L RBC 4.12 Hgb 11.5 L Hct 35.1 L MCV 85 MCH 28 MCHC 33 RDW 15.3 H Plt Count 197 Lymph % (Auto) 12.1 L [place] % (Auto) 9.7 H Eos % (Auto) 2.5 Baso % (Auto) 0.6 Lymph # 0.5 L [place] # 0.4 Eos # 0.1 Baso # 0.0 Seg Neutrophils % 75.1 H Seg Neutrophils # 3.3 PT 14.2 INR 1.09 APTT Sodium Potassium Chloride Carbon Dioxide Anion Gap BUN Creatinine Estimated GFR BUN/Creatinine Ratio Glucose Hemoglobin A1c Calcium Triglycerides Cholesterol LDL Cholesterol Direct HDL Cholesterol Cholesterol/HDL Ratio Hepatitis A IgM Ab Non-reactive Hep Bs Antigen Non-reactive Hep B Core IgM Ab Non-reactive Hepatitis C Antibody Non-reactive 07/09/19 07/09/19 07/09/19 04:53 04:53 04:53 WBC RBC Hgb Hct MCV MCH MCHC RDW Plt Count Lymph % (Auto) [place] % (Auto) Eos % (Auto) Baso % (Auto) Lymph # [place] # Eos # Baso # Seg Neutrophils % Seg Neutrophils # PT 14.0 INR 1.07 APTT 34.0 Sodium 141 Potassium 3.7 Chloride 107.8 H Carbon Dioxide 18 L Anion Gap 19 BUN 20 Creatinine 1.2 Estimated GFR > 60 BUN/Creatinine Ratio 17 Glucose 96 Hemoglobin A1c 5.6 Calcium 8.6 Triglycerides 76 Cholesterol 135 LDL Cholesterol Direct 84 HDL Cholesterol 40 Cholesterol/HDL Ratio 3.37 Hepatitis A IgM Ab Hep Bs Antigen Hep B Core IgM Ab Hepatitis C Antibody
--- NOTE | 2019-07-09 13:58 | Consultation ---
History of Present Illness Consult date: 07/09/19 Reason for Consult: weakness History of present illness: 73-year-old male with known history of hypertension, hyperlipidemia brought into the emergency room today for generalized weakness and altered mental status. Patient was said to be sitting down his sofa today and was not behaving his usual self. Patient was said to have been having some cough productive of some yellow sputum recently, had no fever or chills, no nausea vomiting, no chest pain. Upon arrival in the emergency room patient indicates that he just felt very weak and could not get up from the chair. He denies any other complaints. on arrival vitas are stable with mild elevated temp.99.6 BP 126/63 pt. denied confusion or LOC he just remember feeling weak on trial to stand up Ammonia level initially was 69 and normalized today he was started on lactulos , Had GI work up unrevealing According to pt. he drinks an average 2-3 drinks a week mostly beer , he smokes 1 ppd denied recreational drug intake he lives alone Past History Past Medical History: hypertension, hyperlipidemia, other (Prostate cancer) Past Surgical History: Other (Prostate surgery) Social history: smoking (1 pack per day of cigarette), alcohol abuse (Drinks alcohol occasionally) Family history: no significant family history Past History Past Medical History: hypertension, hyperlipidemia, other (Prostate cancer) Past Surgical History: Other (Prostate surgery) Social history: smoking (1 pack per day of cigarette), alcohol abuse (Drinks alcohol occasionally) Family history: no significant family history Medications and Allergies Allergies Allergy/AdvReac Type Severity Reaction Status Date / Time No Known Allergies Allergy Verified 10/23/14 11:02 Home Medications Medication Instructions Recorded Confirmed Last Taken Type Metoprolol Succinate 25 mg PO DAILY 01/21/15 07/08/19 01/19/15 History AtorvaSTATin 40 mg PO HS 07/08/19 07/08/19 Unknown History Active Meds: Active Medications Acetaminophen (Tylenol) 650 mg PO Q4H PRN PRN Reason: Pain MILD(1-3)/Fever >100.5/LUA Last Admin: 07/08/19 10:00 Dose: 650 mg Documented by: Atorvastatin Calcium (Lipitor) 40 mg PO QHS [facility] Last Admin: 07/08/19 21:12 Dose: 40 mg Documented by: Heparin Sodium (Porcine) (Heparin) 5,000 unit SUB-Q Q8HR [facility] Last Admin: 07/09/19 05:56 Dose: Not Given Documented by: Sodium Chloride (Nacl 0.9% 1000 Ml) 1,000 mls @ 75 mls/hr IV DIRECT [facility] Last Admin: 07/08/19 21:13 Dose: 75 mls/hr Documented by: Lactulose (Cephulac) 20 gm PO Q6HR [facility] Last Admin: 07/09/19 05:54 Dose: 20 gm Documented by: Magnesium Hydroxide (Milk Of Magnesia) 30 ml PO Q4H PRN PRN Reason: Constipation Metoprolol Succinate (Metoprolol Xl) 25 mg PO DAILY [facility] Last Admin: 07/09/19 10:46 Dose: 25 mg Documented by: Ondansetron HCl (Zofran) 4 mg IV Q8H PRN PRN Reason: Nausea And Vomiting Sodium Chloride (Sodium Chloride Flush Syringe 10 Ml) 10 ml IV BID [facility] Last Admin: 07/08/19 21:12 Dose: 10 ml Documented by: Sodium Chloride (Sodium Chloride Flush Syringe 10 Ml) 10 ml IV PRN PRN PRN Reason: LINE FLUSH Review of Systems All systems: negative Physical Examination - Vital Signs Vital Signs: Vital Signs Temp Pulse Resp BP Pulse Ox 99.6 F 92 H 16 161/92 96 07/07/19 20:05 07/07/19 20:05 07/07/19 20:05 07/07/19 20:05 07/07/19 20:05 - Constitutional General appearance: comfortable - EENT EENT: Present: PERRL, mucous membranes moist - Respiratory Respiratory: Present: chest non-tender, lungs clear, rhonchi - Cardiovascular Cardiovascular: Present: regular rate, normal S1, normal S2 Extremities: Present: no peripheral edema bilatateraly, no clubbing, cyanosis, no inflammation - Gastrointestinal Gastrointestinal: Present: normoactive bowel sounds - Integumentary Integumentary: Present: normal - Neurologic Cranial nerve examination: PERRL, EOMI, V1/V2/V3 grossly intact, face symmetric, intact Speech examination: intact Sensorimotor examination: intact Detailed motor examination: other Detailed sensory examination: intact Reflexes: 1+: ankle, bicep, knee, tricep Results - Laboratory Findings CBC and BMP: 07/09/19 04:53 07/09/19 04:53 Abnormal Lab Findings: Abnormal Labs 07/07/19 07/07/19 07/07/19 22:10 22:10 22:10 WBC 4.2 L Hgb Hct RDW Lymph % (Auto) 7.4 L Shannon % (Auto) 10.4 H Lymph # 0.3 L Seg Neutrophils % 81.1 H Sodium 136 L Chloride Carbon Dioxide 20 L Ammonia 69.0 H Total Protein 8.4 H 07/09/19 07/09/19 04:53 04:53 WBC 4.3 L Hgb 11.5 L Hct 35.1 L RDW 15.3 H Lymph % (Auto) 12.1 L Shannon % (Auto) 9.7 H Lymph # 0.5 L Seg Neutrophils % 75.1 H Sodium Chloride 107.8 H Carbon Dioxide 18 L Ammonia Total Protein Assessment and Plan 1- This is 73 ys oled male presented to hospital for evaluation of diffuse w eakness noted by pt. when he tried to get up from his sofa , he denied fall but was slightly dizzy , Ct brain in ER is unremarkable as well as routine labs and Vital sign except for slight elevated temp. 99.6 His ammonia level on initial evaluation was # 69 2- Hx of HTN and HLP 3- Hx of prostatic cancer S/P surgery 4- Smoking hx 1 PPD ,and drinking PLAN 1- IV hydration ? orthostatic hypotenstion 2- Review MRI brain ,US carotid and echo. 3- R/O underlying infection ? 4- DVT precaution 5- PT therapy to see will follow along
--- NOTE | 2019-07-09 14:01 | Vascular Lab Report ---
. BILATERAL CAROTID DOPPLER ULTRASOUND INDICATION : TIA, gait disturbance for a month, hyperlipidemia TECHNIQUE: Grayscale and color Doppler imaging performed through the neck. COMPARISON: None FINDINGS: Right: There is no significant atherosclerotic disease. Peak systolic velocity in the CCA is 77 cm/ s with end-diastolic velocity of 19 cm/s. Peak systolic velocity in the proximal ICA is 78 cm/s with end-diastolic velocity of 29 cm/s. ICA to CCA ratio is less than 2. There is antegrade flow in the E CA and the vertebral artery. Left: There is mild smooth noncalcified plaque in the mid CCA. Peak systolic velocity in the CCA is 1 03 cm/s with end-diastolic velocity of 25 cm/s. Peak systolic velocity in the proximal ICA is 64 cm/s with end-diastolic velocity of 20 cm/s. ICA to CCA ratio is less than 2. There is antegrade flow in the ECA and the vertebral artery. IMPRESSION: No hemodynamically significant stenosis by NASCET criteria. Signer Name: Wagner Mcclellan Jr, MD Signed: 07/09/2019 1:56 PM Workstation Name: [id number]
--- NOTE | 2019-07-09 14:44 | Discharge Summary ---
Providers - Providers Date of Admission: 07/07/19 23:26 Attending physician: YULIANA VILLARREAL MD 07/08/19 Consult to Physician [CONS] Routine Comment: Consulting Provider: RUDDY MACHUCA Physician Instructions: Reason For Exam: ams 07/08/19 05:48 Consult to Physician [CONS] Routine Comment: Consulting Provider: RONAK BERNAL Physician Instructions: Reason For Exam: elevated liver enzyme, hyperammonemia 07/08/19 16:53 Physical Therapy Evaluation and Treat [CONS] Stat Comment: Reason For Exam: Evaluate for gait weakness 07/08/19 16:57 Occupational Therapy Evaluate and Treat [CONS] Routine Comment: Reason For Exam: Neuro deficits Physical Therapy Evaluation and Treat [CONS] Routine Comment: Reason For Exam: Neuro deficits Primary care physician: STABBER Hospitalization Condition: Fair Hospital course: 73-year-old man who presents to the hospital with an episode of weakness.. His family were concerned that he was less responsive. Altered mental status excluded, patient had weakness Patient denies altered mental status, stroke work-up was negative. Acute metabolic encephalopathy ruled out. MRI brain, MRA head, carotid Dopplers were all negative. He was seen by PT and did not have any needs. URTI; [id number] medications Pseudo-hyperammonemia It was likely a lab error, question if the sample was put on ice. Repeat ammonia is normal. Liver function tests are normal. Low-grade fever; flu negative, UA and chest x-ray negative. Patient most likely has a viral URTI. [id number] medications as needed. Preventative health counseling performed for 17 minutes Disposition: DC-01 TO HOME OR SELFCARE Time spent for discharge: 35 minutes Core Measure Documentation - Palliative Care Palliative Care/ Comfort Measures: Not Applicable - Core Measures Any of the following diagnoses?: none Exam - Constitutional Vitals: Temp Pulse Resp BP Pulse Ox 99.1 F 59 L 18 126/63 94 07/09/19 04:16 07/09/19 04:16 07/09/19 04:16 07/09/19 04:16 07/09/19 04:16 General appearance: Present: no acute distress, well-nourished - EENT Eyes: Present: PERRL ENT: hearing intact, clear oral mucosa - Neck Neck: Present: supple, normal ROM - Respiratory Respiratory effort: normal Respiratory: bilateral: CTA - Cardiovascular Heart Sounds: Present: S1 & S2. Absent: rub, click - Extremities Extremities: pulses symmetrical, No edema Peripheral Pulses: within normal limits - Abdominal General gastrointestinal: Present: soft, non-tender, non-distended, normal bowel sounds Male genitourinary: Present: normal - Integumentary Integumentary: Present: clear, warm, dry - Musculoskeletal Musculoskeletal: gait normal, strength equal bilaterally - Psychiatric Psychiatric: appropriate mood/affect, intact judgment & insight - Neurologic Neurologic: CNII-XII intact, moves all extremities Plan Follow up with: PRIMARY CARE, [Primary Care Provider] - 3-5 Days
[2019-07-09 16:43] VITALS: BP 131/53
== END 2019-07-09 19:19 | disposition home or self-care (01) ==
LOC: ED 18:22 → 4A 23:26 → INTOOBSV 23:26 → 4A 07-08 00:55
PROVIDERS: ADMIT Internal Medicine Geriatric Medicine; ATTEND Internal Medicine
DX: R41.82 Altered mental status, unspecified (principal); E72.20 Disorder of urea cycle metabolism, unspecified; I10 Essential (primary) hypertension; K21.9 Gastro-esophageal reflux disease without esophagitis; E78.00 Pure hypercholesterolemia, unspecified; R93.0 Abnormal findings on diagnostic imaging of skull and head, not elsewhere classified; R53.1 Weakness; F17.210 Nicotine dependence, cigarettes, uncomplicated; Z98.890 Other specified postprocedural states; Z85.46 Personal history of malignant neoplasm of prostate; Z79.899 Other long term (current) drug therapy
CPT/HCPCS: 36415; 70450; 70544; 71045; 74177; 76700; 80048; 80053; 80061; 80074; 81001; 82140; 82550; 82553; 83036; 83735; 84439; 84443; 84484; 85025; 85610; 85730; 87040; 87400; 93005; 93010; 93306; 93880; 96360; 96361; 96372; 97161; 99284; 99406; A9270; G0378; J1644; J7030; Q9967; 80320; 96374; G0480